=== PATIENT | male | born 1960 | race Caucasian/White ===

== ENCOUNTER → 2016-11-16 | Outpatient (CLI) | payer BC ==
[~2016-11-16] MED LIST: OPTIRAY 320 IV PRN
--- NOTE | 2016-11-16 15:06 | DIAGNOSTIC IMAGING REPORT ---
ABD/PELVIS IV AND ORAL CONT CLINICAL HISTORY: 56 years-old Male presenting with ABN CYSTIC /NODULAR PROXIMAL COLON. TECHNIQUE: Multidetector CT of the abdomen and pelvis was performed after the administration of oral and intravenous contrast. IV contrast: Optiray 320. A dose lowering technique was used consistent with the principles of ALARA (as low as reasonably achievable). COMPARISON: None. CT DOSE (mGy.cm): The estimated cumulative dose is 311.30 mGy.cm. FINDINGS: Monogram Maker topogram: Unremarkable. Lung bases: Minimal dependent opacities likely atelectasis. Normal heart size. No pericardial or pleural effusion. Liver: Normal morphology. Subcentimeter well-defined hypodensity in the left hepatic lobe, too small to characterize but likely hepatic cyst or hamartoma.. Patent hepatic vasculature. Biliary: No intrahepatic or extrahepatic biliary ductal dilatation. Normal gallbladder. Pancreas: Normal. Spleen: Normal. Adrenal glands: Normal. Kidneys and ureters: No nephrolithiasis. Normal enhancement. No hydronephrosis. Normal ureters. Bladder: Incompletely evaluated secondary to underdistention. Pelvic organs: Prostate enlargement likely secondary to benign prostatic hyperplasia. Bowel: Mild apparent nodular soft tissue thickening along the anterior wall of the cecum immediately superior to the ileocecal valve (series 3 image 312). Mild stool burden throughout normal caliber colon. Normal appendix. No bowel obstruction. Peritoneal cavity: No free fluid or intraperitoneal gas. Vasculature: Aorta and IVC patent and normal in caliber. Lymph nodes: No enlarged lymph nodes in the abdomen or pelvis. Abdominal wall: Suggestion of the left varicocele with mild dilatation of the left gonadal vein. Musculoskeletal: Normal. IMPRESSION: 1. Mild apparent nodular soft tissue thickening along the anterior wall of the cecum immediately superior to the ileocecal valve. This could represent neoplastic polyp. Colonoscopy to be considered. 2. No acute intra-abdominal pathology. 3. Possible left varicocele. Electronically signed by: Owen Ford M.D. 11/16/2016 3:05 PM Dictated Date/Time: 11/16/2016 2:58 PM
== END | disposition home or self-care (01) ==
LOC: C.CTS 13:52
PROVIDERS: ATTEND Internal Medicine Gastroenterology
DX: K63.9 Disease of intestine, unspecified (principal)